=== PATIENT | male | born 1990 | race Caucasian/White ===

== ENCOUNTER 2021-05-23 17:11 | Emergency (ER) | payer OTHER, SELFPAY ==
[2021-05-23 17:25] VITALS: BP 118/85; PULSE 68; RESP 18; TEMP 36.8; O2SAT 100; BMI 31.0
--- NOTE | 2021-05-23 18:16 | ED_ITS ---
HPI - Wound/Laceration General Chief Complaint: Wound/Laceration Stated Complaint: FACIAL LAC Time Seen by Provider: 05/23/21 18:03 Source: patient Mode of arrival: ambulatory Limitations: no limitations History of Present Illness HPI narrative: Patient presents to ED for facial laceration that occurred around 13:00. Patient states he was playing baseball and going for a catch and his opponent was trying a slide into plate and patient was trying to reach the ball on the ground and patient's cleat hit his face. Patient denies hitting head on the ground or any loss of consciousness patient states there was slight bleeding and bleeding resolved immediately. patient came to the ED to be evaluated. Patient is not any distress. Patient unknown last tetanus shot. Related Data Allergies Allergy/AdvReac Type Severity Reaction Status Date / Time No Known Allergies Allergy Verified 05/23/21 17:25 Review of Systems Review of Systems: Yes all other systems are reviewed and are negative Constitutional: Constitutional: Reports as per HPI and Reports no additional constitutional complaints Eyes: Eyes: Reports as per HPI and Reports no additional eye complaints ENT: Reports system reviewed and no additional complaints, except as do cumented and Reports as per HPI Comments: Facial laceration Cardiovascular: Cardiovascular: Reports as per HPI and Reports no additional cardiovascular complaints Respiratory: Respiratory: Reports as per HPI and Reports no additional respiratory complaints Gastrointestinal: Gastrointestinal: Reports as per HPI and Reports no additional gastrointestinal complaints Genitourinary: Genitourinary: Reports no additional male genitourinary complaints and Reports as per HPI Musculoskeletal: Musculoskeletal: Reports no additional musculoskeletal complaints and Reports as per HPI Integumentary/Breasts: Skin/Breast: Reports system reviewed and no additional complaints, except as docu and Reports as per HPI Neurologic: Reports system reviewed and no additional complaints, except as documented and Reports as per HPI Psychiatric: Psychiatric: Reports no additional psychiatric complaints and Reports as per HPI [facility] Past Medical History Medical History (Updated 05/23/21 @ 18:36 by LAYO Benitez) Patient denies medical problems Social History Social History Advance Directives: No Advance Directives Information Provided: No Physical Exam Vital Signs: Vital Signs: Last Vital Signs Temp 98.3 F 05/23/21 17:25 Pulse 68 05/23/21 17:25 Resp 18 05/23/21 17:25 BP 118/85 05/23/21 17:25 Pulse Ox 100 05/23/21 17:25 Body Mass Index 31.0 Const: General: cooperative, healthy appearing, comfortable, no acute distress, well developed, alert, awake and Physically active Orientation/consciousness: patient oriented x3 HENMT: Other: Negative for any facial tenderness Head: Yes normal to inspection, Yes No palpable skull fracture present, Yes normocephalic, Yes atraumatic, No abrasion, No Acrocyanosis present, No Colvin's sign, No contusion, No cranial bruits, No hematoma, No laceration, No occipital foramen tenderness, No palpable skull fracture, No raccoon eyes, No scalp lesion, No scalp tenderness, No Temporal artery tenderness present and No periorbital ecchymosis Head images: 1. Very superficial laceration. Not deep. Negative for any lacerations oral cavity. Eyes: General: appearance normal, both eyes and all related structures Neck: Neck: Yes normal visual inspection, Yes full ROM, Yes no lymphadenopathy, Yes no meningeal signs, Yes trachea midline, Yes supple and No tender Chest: Chest palpation & inspection: normal inspection of the chest and normal palpation of entire chest wall Resp: Effort & Inspection: normal respiratory effort and able to speak in complete sentences Auscultation: clear to auscultation bilaterally Cardio: Jugular venous distension: no JVD Heart sounds: S1 normal heart sound present and S2 normal heart sound present GI: Inspection: Yes normal to inspection and No abdominal wall ecchymosis Palpation (GI): Soft to palpation, not firm, nontender, no guarding and not rigid : General: No CVA tenderness and Yes no CVA tenderness Back/Spine/Pelvis: Back: no CVA tenderness, No CVA tenderness and No back te nderness Skin: General skin exam: no rashes or lesions noted and elasticity normal Neuro: General: patient oriented x3, gait normal, no meningeal signs and CN's II-XI intact bilaterally Cranial nerves: Yes CN's II-XII intact bilaterally Extrem: General: Yes normal to inspection and Yes full ROM Psych: Appearance: grossly normal, well kempt and not disheveled Course Course Course Narrative: No indication for head CT or facial CT scan. Patient does not have any facial tenderness on palpation Reevaluation(s) Reevaluation #1: Laceration very superficial no stitches indicated. Wound cleaning with sterile saline and Betadine iodine. Derbamond placed to close wound. D-dimer tdap ordered Time: 18:33 MDM - Wound/Laceration MDM Narrative Medical decision making narrative: Facial laceration Discharge Plan Discharge Clinical Impression: Facial laceration Patient Disposition: Home, Self-Care Instructions: Laceration (ED), Skin Adhesive Care (ED) Additional Instructions: Return to the ED immediately for any redness, swelling, pus discharge, foul odor, fever, chills, headache, dizziness, or any other concerning symptoms. Please keep the area dry for at least 24 hours. Please follow-up PCP Discharge Date/Time: 05/23/21 18:48 Print Language: Austrian
[2021-05-23] MEDS: Diphth,Pertus(ACell),Tet Adult 0.5 ML SYRINGE IM (18:25)
== END 2021-05-23 18:48 | disposition home or self-care (01) ==
PROVIDERS: Emergency Provider Emergency Medicine
DX: S01.81XA Laceration without foreign body of other part of head, initial encounter (principal); W22.8XXA Striking against or struck by other objects, initial encounter; Y93.64 Activity, baseball; Y92.9 Unspecified place or not applicable; Y99.9 Unspecified external cause status
CPT/HCPCS: 12011; 90471; 90715; 99283; 99284

== ENCOUNTER 2022-02-07 11:00 | Emergency (ER) | payer OTHER, SELFPAY | END 2022-02-07 16:22 | disposition left against medical advice (07) | LOC: HO.ED 15:53 | PROVIDERS: Emergency Provider Emergency Medicine | DX: J02.9 Acute pharyngitis, unspecified (principal) ==